=== PATIENT | male | born 1995 | race Hispanic/Latino ===

== ENCOUNTER 2019-01-30 10:17 | Emergency (ER) | payer OTHER, SELFPAY ==
[2019-01-30] MEDS ORDERED: KETOROLAC 30 MG/ML INJ ONE (10:47)
--- NOTE | 2019-01-30 12:32 | EDPHYS ---
Physician Documentation [facility] Name: Grupo Thomas Age: 23 yrs Sex: Male : 1995 Arrival Date: 01/30/2019 Time: 10:20 Bed 12 Private MD: ED Physician Servando Perea HPI: 01/30 10:52 This 23 yrs old Male presents to ER via Ambulatory with complaints of Knee jmm Pain. 10:52 The patient presents with an injury, pain. Onset: The symptoms/episode began/occurred jmm acutely. Modifying factors: The symptoms are alleviated by nothing. the symptoms are aggravated by movement. Associated signs and symptoms: Pertinent positives: swelling. This is a 23 year old male with no chronic medical conditions that presents to the ED with complaints of right knee pain and swelling. Patient states his knee cap displaced after falling directly on the knee while wrestling. . Historical: - Allergies: 10:26 No Known Allergies; sg - Home Meds: 10:26 None [Active]; sg - PMHx: 10:26 None; sg - PSHx: 10:26 None; sg - Immunization history:: Adult Immunizations up to date. - Social history:: Smoking status: Patient/guardian denies using tobacco. - Ebola Screening: : Patient negative for fever greater than or equal to 101.5 degrees Fahrenheit, and additional compatible Ebola Virus Disease symptoms Patient denies exposure to infectious person Patient denies travel to an Ebola-affected area in the 21 days before illness onset No symptoms or risks identified at this time. ROS: 10:52 Constitutional: Negative for fever, chills, and weight loss, Cardiovascular: Negative jmm for chest pain, palpitations, and edema, Respiratory: Negative for shortness of breath, cough, wheezing, and pleuritic chest pain. 10:52 MS/extremity: Positive for injury or acute deformity, pain. 10:52 All other systems are negative. Exam: 10:52 Constitutional: This is a well developed, well nourished patient who is awake, alert, jmm and in no acute distress. Head/Face: atraumatic. Eyes: EOMI, no conjunctival erythema appreciated ENT: Moist Mucus Membranes Neck: Trachea midline, Supple Chest/axilla: Normal chest wall appearance and motion. Cardiovascular: Regular rate and rhythm. No edema appreciated Respiratory: Normal respirations, no respiratory distress appreciated Abdomen/GI: Non distended, soft Back: Normal ROM Skin: General appearance color normal 10:52 Musculoskeletal/extremity: right anterior knee is TTP, compartments are soft, FROM is appreciated, NVI. 10:52 Skin: Appearance: Color: normal in color. 10:52 Neuro: Orientation: is normal, Mentation: is normal, Memory: is normal. 10:52 Psych: Behavior/mood is pleasant, cooperative. Vital Signs: 10:26 BP 141 / 86; Pulse 98; Resp 17; Temp 97.2; Pulse Ox 100% on R/A; Weight 111.13 kg (R); sg Height 6 ft. 0 in. (182.88 cm); Pain 12/02; 10: Body Mass Index 33.23 (111.13 kg, 182.88 cm) sg MDM: 10:36 Patient medically screened. [facility] 12:29 Data reviewed: vital signs, nurses notes, radiologic studies, plain films. Counseling: karely I had a detailed discussion with the patient and/or guardian regarding: the historical points, exam findings, and any diagnostic results supporting the discharge/admit diagnosis, radiology results, the need for outpatient follow up, to return to the emergency department if symptoms worsen or persist or if there are any questions or concerns that arise at home. ED course: Xray appears normal. Patient is advised to follow up with ortho due to possible patellar dislocation and otherwise given strict return precautions. Patient understood and agrees with the plan of care. . 01/30 10:45 Order name: Knee Right 3 View XRAY [facility] 01/30 11:52 Order name: Knee Immobilizer; Complete Time: 12:17 [facility] Administered Medications: 10:48 Drug: Ketorolac 30 mg Route: IM; Site: left deltoid; iw Disposition: 01/31 08:32 Co-signature as Attending Physician, Servando Perea MD I agree with the assessment and kdr plan of care. Disposition: 01/30/19 12:31 Discharged to Home. Impression: Pain in right knee. - Condition is Stable. - Discharge Instructions: Knee Pain. - Prescriptions for Ibuprofen 800 mg Oral Tablet - take 1 tablet by ORAL route every 8 hours As needed take with food; 30 tablet. - Medication Reconciliation Form, Thank You Letter, Antibiotic Education, Prescription Opioid Use, Work release form form. - Follow up: Marciano Dc MD; When: 2 - 3 days; Reason: Recheck today's complaints, Continuance of care, Re-evaluation by your physician. Signatures: Dispatcher [employer] EDMS Marciano Quigley, RN RN Servando Perea MD MD [facility] Carl Rehman PA PA Zeny Douglas RN RN iw Corrections: (The following items were deleted from the chart) 01/30 13:07 12:31 01/30/2019 12:31 Discharged to Home. Impression: Pain in right knee. Condition is iw Stable. Forms are Medication Reconciliation Form, Thank You Letter, Antibiotic Education, Prescription Opioid Use. Follow up: Marciano Dc; When: 2 - 3 days; Reason: Recheck today's complaints, Continuance of care, Re-evaluation by your physician. dima
--- NOTE | 2019-01-30 12:32 | ER ---
Nurse's Notes [facility] Name: Grupo Thomas Age: 23 yrs Sex: Male : 1995 Arrival Date: 01/30/2019 Time: 10:20 Bed 12 Private MD: Diagnosis: Pain in right knee Presentation: 01/30 10:26 Presenting complaint: Patient states: was rough housing with friends last night, hurt sg my knee by twisting it out of socket, was able to get it placed back into socket and put a brace on then just went to sleep, today the pain has worsened, hurts the most with weightbearing and trying to walk. Transition of care: patient was not received from another setting of care. Onset of symptoms was January 30, 2019. Risk Assessment: Do you want to hurt yourself or someone else? Patient reports no desire to harm self or others. Initial Sepsis Screen: Does the patient meet any 2 criteria? No. Patient's initial sepsis screen is negative. Does the patient have a suspected source of infection? No. Patient's initial sepsis screen is negative. Care prior to arrival: None. 10:26 Method Of Arrival: Ambulatory sg 10:26 Acuity: ENRIQUE 4 sg Historical: - Allergies: 10:26 No Known Allergies; sg - Home Meds: 10:26 None [Active]; sg - PMHx: 10:26 None; sg - PSHx: 10:26 None; sg - Immunization history:: Adult Immunizations up to date. - Social history:: Smoking status: Patient/guardian denies using tobacco. - Ebola Screening: : Patient negative for fever greater than or equal to 101.5 degrees Fahrenheit, and additional compatible Ebola Virus Disease symptoms Patient denies exposure to infectious person Patient denies travel to an Ebola-affected area in the 21 days before illness onset No symptoms or risks identified at this time. Assessment: 10:30 General: Appears in no apparent distress. well groomed, well developed, well nourished, sg Behavior is calm, cooperative, appropriate for age. Pain: Complains of pain in right quadriceps and right knee Quality of pain is described as sharp. Neuro: Level of Consciousness is awake, alert, obeys commands, Oriented to person, place, time, situation, Speech is normal, Facial symmetry appears normal. Cardiovascular: Capillary refill is brisk in bilateral fingers Patient's skin is warm and dry. Chest pain is denied. Respiratory: Airway is patent Respiratory effort is even, unlabored, Respiratory pattern is regular, symmetrical. GI: Abdomen is round non-distended. : No signs and/or symptoms were reported regarding the genitourinary system. EENT: No signs and/or symptoms were reported regarding the EENT system. Derm: Skin is pink, warm \T\ dry. Musculoskeletal: Circulation, motion, and sensation intact. Range of motion: intact in all extremities. Vital Signs: 10:26 BP 141 / 86; Pulse 98; Resp 17; Temp 97.2; Pulse Ox 100% on R/A; Weight 111.13 kg (R); sg Height 6 ft. 0 in. (182.88 cm); Pain 10/10; 10:26 Body Mass Index 33.23 (111.13 kg, 182.88 cm) sg ED Course: 10:20 Patient arrived in ED. mr 10:25 Arm band placed on. sg 10:29 Marciano Quigley, RN is Primary Nurse. sg 10:29 Carl Rehman PA is PHCP. m 10:29 Servando Perea MD is Attending Physician. m 10:30 Triage completed. sg 10:31 ice pack applied. sg 11:38 Knee Right 3 View XRAY In Process Unspecified. EDMS 12:30 Marciano Dc MD is Referral Physician. [facility] Administered Medications: 10:48 Drug: Ketorolac 30 mg Route: IM; Site: left deltoid; iw Outcome: 12:31 Discharge ordered by . [facility] 13:07 Patient left the ED. iw Signatures: Dispatcher [employer] EDMS Marciano Quigley, RN RN Carl Rehman PA PA jmm Rivera, Mary mr Williams, Irene, RN RN iw
--- NOTE | 2019-01-30 13:13 | RAD REPORT ---
EXAM DESCRIPTION: RAD - Knee Right 3 View - 01/30/2019 11:37 am COMPARISON: None. FINDINGS: No fracture, dislocation or periosteal reaction.Small joint effusion is present. No joint space narrowing. No foreign body or other soft tissue abnormality. IMPRESSION: Small joint effusion with no acute bone finding. Clinical concerns for internal derangement or occult bony injury could be further assessed with MR im aging.
[2019-01-30 13:21] VITALS: BP 141/86; TEMP 97.2; O2SAT 100
== END 2019-01-30 13:07 | disposition home or self-care (01) ==
LOC: ER 10:17
DX: M25.561 Pain in right knee (principal)
CPT/HCPCS: 96372; 99283

== ENCOUNTER 2023-10-05 20:36 | Inpatient (IN) | payer SELFPAY ==
--- NOTE | 2023-10-05 20:46 | P.HP ---
Certification for Inpatient Patient admitted to: Inpatient With expected LOS: <2 Midnights Practitioner: I am a practitioner with admitting privileges, knowledge of patient current condition, hospital course, and medical plan of care. Services: Services provided to patient in accordance with Admission requirements found in Title 42 Section 412.3 of the Code of Federal Regulations Patient History Date of Service: 10/05/23 Reason for admission: PE, DVT History of Present Illness: 28-year-old male with a past medical history of DVT, presents as a direct admission for PE. He presented to the outside urgent care with chest pain. He reported chest pain started 1 week ago while working out at the gym. He reports associated shortness of breath, that is worse with exertion, he reports chest pain is worse with exertion. Chest pain radiates to the neck described as a 2 out of 10 currently. Chest pain, shortness of breath relieved with rest. No reported nausea, vomiting, diaphoresis. He reports history of a DVT 2019, . He reports right lower extremity swelling. He denies recent injury. Ultrasound positive DVT right lower superficial femoral and popliteal vein thrombosis extremity, CTA of the chest shows small pulmonary embolism in the right posterior basal segment, no have a evidence of right heart strain, mild pulmonary vascular congestion. Plan to admit for PE, right lower extremity DVT, with cardiology to consult. Allergies No Known Allergies Allergy (Verified 10/05/23 21:18) Home Medications: NK [No Home Meds] 10/05/23 - Past Medical/Surgical History -: DVT -: Knee dislocation - Social History Smoking Status: Current some day smoker Alcohol use: Yes Caffeine use: Yes Place of Residence: Home Review of Systems Per HPI Physical Examination - Physical Exam General: Alert, Oriented x3, Mild distress HEENT: Atraumatic, Normocephalic, PERRLA, Mucous membr. moist/pink Neck: 2+ carotid pulse no bruit, JVD not distended Respiratory: Clear to auscultation bilaterally, Normal air movement Cardiovascular: Normal pulses, Regular rate/rhythm, Other (Chest pain radiates to the neck 2 out of 10) Gastrointestinal: Normal bowel sounds, Soft and benign Musculoskeletal: No clubbing, No swelling Integumentary: No rashes, No breakdown Neurological: Normal speech, Normal strength at 5/5 x4 extr, Cranial nerves 3-12 intact Assessment and Plan - Plan Assessment plan Acute hypoxic respiratory failure secondary to PE Acute chest pain secondary to PE Pulmonary embolus right posterior base Acute right lower extremity DVT medical history of DVT Elevated troponin Tobacco use Cardiology consult, telemetry Echo ordered for the a.m. Lovenox 100 mg twice daily subcu O2 2 L keep sats greater than 90% As needed analgesics, metoprolol 25 twice daily, aspirin, lipid panel ordered presents as a direct admission for PE. He presented to the outside urgent care with chest pain. He reported chest pain started 1 week ago while working out at the gym. He reports associated shortness of breath, that is worse with exertion, he reports chest pain is worse with exertion. Chest pain radiates to the neck described as a 2 out of 10 currently. Chest pain, shortness of breath relieved with rest. No reported nausea, vomiting, diaphoresis. He reports history of a DVT 2019, . He reports right lower extremity swelling. He denies recent injury. Ultrasound positive DVT right lower superficial femoral and popliteal vein thrombosis extremity, CTA of the chest shows small pulmonary embolism in the right posterior basal segment, no have a evidence of right heart strain, mild pulmonary vascular congestion. Full code DVT therapeutic Lovenox Diet cardiac Disposition Home independent prior. Discharge Plan: Home - Advance Directives Does patient have a Living Will: No Does patient have a Durable POA for Healthcare: No - Code Status/Comfort Care Code Status: Full Code Critical Care: No Time Spent Managing Pts Care (In Minutes): 55
[2023-10-05] MEDS ORDERED: ZOLPIDEM TARTRATE 5 MG TABLET PO PRN (20:47)
[2023-10-05] MEDS ORDERED: ACETAMINOPHEN 500 MG TAB PO PRN (20:47)
[2023-10-05] MEDS ORDERED: ONDANSETRON 4 MG/2 ML VIAL IV PRN (20:47)
[2023-10-05] MEDS ORDERED: MORPHINE 4 MG/ML SYR IV PRN (22:54)
[2023-10-06] MEDS: ENOXAPARIN 100 MG/ML SYR SQ SCH (06:00)
[2023-10-06] MEDS: ENOXAPARIN 100 MG/ML SYR SQ ONE (06:04)
[2023-10-06] MEDS: METOPROLOL TAR 25 MG TAB PO SCH (06:04)
[2023-10-06 06:28] LABS: Absolute Basophils 0.1 K/uL (0-0.5); Absolute Eosinophils 0.3 K/uL (0-0.5); Absolute Lymphocytes (CBC) 2.4 K/uL (0.7-4.9); Absolute Monocytes 0.8 K/uL (0.1-1.3); Eosinophils % 3.4 % (0-4.4); Hematocrit 42.8 % (39.6-49.0); Hemoglobin 14.4 g/dL (13.6-17.9); Lymphocytes % 25.3 % (15.3-44.8); MCH 28.8 pg (27.0-35.0); MCHC 33.7 g/dL (32.0-36.0); MCV 85.5 fL (80-100); MPV 10.2 fL (7.6-11.3); Monocytes % 8.6 % (3.3-12.3); Neutrophils % 61.7 % (41.7-73.7); Nucleated Red Blood Cells % 0.1 % (0-0); Platelets 173 thou/uL (152-406); Red Cell Distribution Width 13.1 % (12.1-15.2)
[2023-10-06 06:35] LABS: Albumin 3.5 g/dL (3.4-5.0); Albumin/Globulin Ratio 0.9 (1.1-1.8); Anion Gap 8.8 mEq/L (5.0-15.0); Bilirubin Total 0.5 mg/dL (0.2-1.0); Globulin 3.9 g/dL (2.3-3.5); Magnesium 2.3 mg/dL (1.6-2.4); Potassium 3.8 mEq/L (3.5-5.1); Protein, Total 7.4 g/dL (6.4-8.2)
[2023-10-06] MEDS: ASPIRIN EC 81 MG TAB PO SCH (08:22)
[2023-10-06] MEDS ORDERED: LIDOCAINE 1% 20 ML MDV ONE (11:20)
[2023-10-06] MEDS ORDERED: HEPA 1000U/500MLS 2,000 UNIT/1,000 ML BAG IV ONE (11:20)
[2023-10-06] MEDS ORDERED: FENTANYL CITR 100 MCG/2 ML ONE (11:20)
[2023-10-06] MEDS ORDERED: ATROPINE SULF 1 MG/10 ML SYR IV ONE (11:20)
[2023-10-06] MEDS ORDERED: MIDAZOLAM HCL 2 MG/2 ML INJ ONE (11:20)
[2023-10-06] MEDS ORDERED: CLOPIDOGREL 75 MG TABLET ONE (11:21)
[2023-10-06] MEDS ORDERED: ASPIRIN 325 MG TAB ONE (11:21)
[2023-10-06] MEDS ORDERED: TICAGRELOR 90 MG TABLET PO ONE (11:21)
[2023-10-06] MEDS ORDERED: HEPARIN 10,000 UNIT/10 ML VIAL IV ONE (11:21)
[2023-10-06] MEDS ORDERED: HEPARIN 5000 UNIT/ML 1 ML VIAL ONE (11:21)
[2023-10-06] MEDS ORDERED: NA CHLORIDE 0.9% 500 ML ONE (11:49)
--- NOTE | 2023-10-06 12:13 | P.CNS ---
Date of Consult: 10/06/23 Chief Complaint: PE, DVT History of Present Illness: patient with no significant PMH presented with chest pressure that started thursday, pressure like mid chest, no radiation, associated with SOB and fatigue. Allergies No Known Allergies Allergy (Verified 10/05/23 21:18) Home Medications: NK [No Home Meds] 10/05/23 - Past Medical/Surgical History Diabetic: No -: DVT -: Knee dislocation - Social History Alcohol use: Yes CD- Drugs: No Caffeine use: Yes Place of Residence: Home Review of Systems 10-point ROS is otherwise unremarkable Physical Examination Temp Pulse Resp BP Pulse Ox 97.3 F 68 16 144/85 H 96 10/06/23 08:00 10/06/23 08:00 10/06/23 08:00 10/06/23 08:00 10/06/23 08:00 General: Alert, In no apparent distress HEENT: Atraumatic, PERRLA, Mucous membr. moist/pink, EOMI, Sclerae nonicteric Neck: Supple, 2+ carotid pulse no bruit, No LAD, Without JVD or thyroid abnormality Respiratory: Clear to auscultation bilaterally, Normal air movement Cardiovascular: Regular rate/rhythm, Normal S1 S2 Gastrointestinal: Normal bowel sounds, No tenderness Musculoskeletal: No tenderness Integumentary: No rashes Neurological: Normal gait, Normal speech, Normal tone, Normal affect Lymphatics: No axilla or inguinal lymphadenopathy Laboratory Data (last 24 hrs) 10/06/23 10/06/23 10/06/23 05:39 05:39 05:39 WBC 9.70 Hgb 14.4 Hct 42.8 Plt Count 173 Sodium 139 Potassium 3.8 BUN 8 Creatinine 0.92 Glucose 92 Phosphorus 3.5 Magnesium 2.3 Total Bilirubin 0.5 AST 64 H ALT 52 Alkaline Phosphatase 57 Triglycerides 181 H Cholesterol 192 HDL Cholesterol 30 L Cholesterol/HDL Ratio 6.40 - Problems (1) NSTEMI (non-ST elevated myocardial infarction) Current Visit: Yes Status: Acute Plan: will do coronary angiogram get echo ASA 81 mg daily Lipitor 40 mg daily Heparin drip (2) Pulmonary emboli Current Visit: Yes Status: Acute Plan: get echo Heparin drip (3) DVT (deep venous thrombosis) Current Visit: Yes Status: Acute Plan: Heparin drip might switch to eliguis 5 mg po BID on discharge patient will need to follow up with hematology
[2023-10-06] MEDS ORDERED: EPTIFIBATIDE 20 MG/10 ML VIAL IV ONE (12:48)
[2023-10-06] MEDS ORDERED: EPTIFIBATIDE 75 MG/100 ML VIAL IV ONE (12:49)
[2023-10-06 14:31] LABS: RPR Titer ND
--- NOTE | 2023-10-06 15:12 | P.PN ---
Subjective Date of Service: 10/06/23 Chief Complaint: PE, DVT Patient denies any chest pain at the moment. Troponin markedly elevated and trended up to 8768 Patient has no new complaints. He denies shortness of breath. Physical Examination - Vital Signs Temperature: 97.5 F Blood Pressure: 137/81 Pulse: 79 Respirations: 15 Pulse Ox (%): 100 - Studies Laboratory Data (last 24 hrs) 10/06/23 10/06/23 10/06/23 05:39 05:39 05:39 WBC 9.70 Hgb 14.4 Hct 42.8 Plt Count 173 Sodium 139 Potassium 3.8 BUN 8 Creatinine 0.92 Glucose 92 Phosphorus 3.5 Magnesium 2.3 Total Bilirubin 0.5 AST 64 H ALT 52 Alkaline Phosphatase 57 Triglycerides 181 H Cholesterol 192 HDL Cholesterol 30 L Cholesterol/HDL Ratio 6.40 Assessment And Plan - Plan Physical Examination General: Well-built, Not in acute distress. Neck: Supple, no elevated JVD, no thyromegaly. Lungs: Clear to auscultation bilaterally. No rhonchi, no rales, no crackles. Heart: S1-S2 heard, rapid, no murmur no gallop no rub. Normal capillary refill. Abdomen: Soft, nontender, nondistended, no hepatosplenomegaly. Extremities: No pedal edema. No deformity. Neuro: No cranial nerve deficit, no focal motor deficit. Psychiatry: Awake, normal behavior, normal affect. Skin: Warm and dry, no rashes. Acute chest pain secondary to PE Acute pulmonary embolus. Acute right lower extremity DVT History of DVT NSTEMI Tobacco use Assessment and plan Acute chest pain NSTEMI. Troponin trended significantly up. Cardiology consulted. Patient underwent cardiac catheterization. Coronary artery occlusion secondary to thrombosis reported(preliminary result) Patient started on Integrilin drip and transferred to the ICU. Cardiology to follow-up. Acute pulm embolism Acute DVT of lower extremity Patient with a history of DVTs in the past, history of CVA suggesting thrombotic disorder involving both his arteries and veins Check hypercoagulable studies. Patient need hematology follow-up. I reached out to Dr. Boewn to discuss patient's condition. I am yet to receive a call back. Heparin drip. Tobacco use disorder Patient strongly advised to avoid smoking. DVT prophylaxis: Heparin drip Advance Directive; Full code
[2023-10-06] MEDS: EPTIFIBATIDE 75 MG/100 ML VIAL IV SCH (17:51)
[2023-10-06 17:56] LABS: Specific Gravity > 1.030 (1.005-1.030); Sqamous Epithelial None Seen /HPF (None Seen); Urine Bacteria <20 /HPF (<20); Urine Bilirubin NEGATIVE (Negative); Urine Blood Negative (Negative); Urine Clarity Clear (Clear); Urine Color Colorless (Yellow); Urine Culture Reflex Order NOT NEEDED; Urine Glucose NEGATIVE (Negative); Urine Ketones TRACE (Negative); Urine Microscopic Reflex YN ORDER UMIC; Urine Nitrite NEGATIVE (Negative); Urine Protein NEGATIVE (Negative); Urine RBC <5 /HPF (None Seen); Urine Urobilinogen Normal (Normal); Urine WBC <5 /HPF (<5); Urine pH 6.5 (5.0-7.0)
[2023-10-06] MEDS: HEPARIN/D5W 25,000 UNIT/500 ML BAG IV SCH (20:20)
--- NOTE | 2023-10-06 20:36 | OP ---
Date of Procedure: 10/06/2023 Surgeon: Jean Davalos Procedures Performed: 1.Left heart catheterization. 2.Selective coronary angiogram. 3.PCI of the RCA with Synergy 4.0 x 38 mm drug-eluting stent. Indication For Procedure: [id number] W[place]. Complications: None. Estimated Blood Loss: Less than 50 cc. Sedation Time: 40 minutes with 1 of Versed and 50 of fentanyl. Access: Right radial, closed by TR band. Description Of Procedure: After risks, and benefits, and alternatives were explained to the patient, the patient agreed to proceed with the procedure and signed informed consent. The patient was broug ht back to the lab aid, prepped and draped in sterile fashion. Time-out was performed. Sedation wa s administered. Next, an ultrasound-guided right radial access was obtained. Neffs 4 catheter was advanced over a J-wire to the LV cavity. LVEDP was obtained. Pullback did not show any gradients. Same catheter was used for selective angiogram of t he left and right coronary systems. That catheter was later exchanged for a JR4 guide. Heparin was administered. Then, ACT was therapeutic. Next, a Runthrough wire was passed across the RCA. I pre- dilated the mid RCA disease with an NC 3.5 mm balloon. Next, Synergy 4.0 x 38 mm drug-eluting stent was placed across the lesion. That was post-dilated with an NC 5 mm balloon at 18 atmospheres. Adeline l angiogram shows EDWIN-3 flow. Catheter was removed over a J-wire. Sheath was removed. TR band was applied. The patient was moved back to recovery in stable condition. Findings: 1.Left main normal. 2.LAD normal. 3.Left circ normal. 4.RCA; large, dominant, mid 80% plaque erosions with thrombotic lesion is seen over there, PCI done with Synergy 4.0 x 38 mm drug-eluting stent, distal mild LI. Assessment And Plan: Significant mid RCA thrombotic disease. PCI done with Synergy 4.0 x 38 mm drug -eluting stent. 1.Aspirin 81 mg daily for life. 2.Brilinta 180 x1 was given in the lab aid, continue Brilinta 90 mg p.o. b.i.d. for 12 months. 3.Integrilin bolus was given in the lab aid, continue drip for 6 hours. 4.Heparin drip to be resumed in 2 hours and to be continued for 48 hours after PCI. 5.Continue aggressive medical treatment for CAD. GROVE/MODL Voice ID: [id number] Report ID: [id number]
[2023-10-06] MEDS: TICAGRELOR 90 MG TABLET PO SCH (23:11)
[2023-10-07 01:07] LABS: RPR (Rapid Plasma Reagin) NON-REACT (NON-REACT)
[2023-10-07 02:59] VITALS: BMI 31.8
[2023-10-07 06:16] LABS: Absolute Basophils 0.1 K/uL (0-0.5); Absolute Eosinophils 0.3 K/uL (0-0.5); Absolute Lymphocytes (CBC) 2.3 K/uL (0.7-4.9); Absolute Neutrophil 7.1 K/uL (1.8-8.0); Basophils % 0.8 % (0-1.3); Eosinophils % 2.9 % (0-4.4); Hematocrit 42.1 % (39.6-49.0); Hemoglobin 14.1 g/dL (13.6-17.9); Lymphocytes % 21.5 % (15.3-44.8); MCH 28.8 pg (27.0-35.0); MCHC 33.6 g/dL (32.0-36.0); MCV 85.6 fL (80-100); MPV 10.6 fL (7.6-11.3); Neutrophils % 65.8 % (41.7-73.7); Platelets 187 thou/uL (152-406); RBC Red Blood Cell Count 4.92 M/uL (4.33-5.43); Red Cell Distribution Width 13.2 % (12.1-15.2)
[2023-10-07 06:40] LABS: Albumin 3.5 g/dL (3.4-5.0); Albumin/Globulin Ratio 0.8 (1.1-1.8); Anion Gap 11.6 mEq/L (5.0-15.0); Bilirubin Total 0.9 mg/dL (0.2-1.0); Globulin 4.3 g/dL (2.3-3.5); Magnesium 2.1 mg/dL (1.6-2.4); Potassium 3.6 mEq/L (3.5-5.1); Protein, Total 7.8 g/dL (6.4-8.2)
--- NOTE | 2023-10-07 06:47 | P.PN ---
Date of Service: 10/07/23 Subjective: doing well post-op. Had LHC and PCI done yesterday feels some mild chest pressure this morning; feels less severe reports history of blood clots in past and has been on blood thinners previously (when 17years old) no new/worse issues overnight ROS: 10 point ROS as noted above, otherwise negative Physical Exam: GEN: Alert, oriented, NAD CV: Regular rate and rhythm, no edema Pulm: Nonlabored respirations on room air, clear bilaterally ABD: Soft, nontender, nondistended Neuro: Normal speech, normal affect vitals reviewed Problem List: NSTEMI secondary to RCA occlusion / thrombus; now s/p PCI (10/05) acute PE and DVT (Right lower superficial femoral and popliteal vein) hx DVT/PE Tobacco use NSTEMI secondary to RCA occlusion / thrombus; now s/p PCI (10/05) Presented from outside urgent care with chest pain/pressure for ~1 week associated with shortness of breath worsened with exertion. Troponin trended up, 11.4k peak Cardiology is following s/p LHC (10/05): noted 80% RCA occlusion with thrombotic lesion, s/p PCI Coronary artery occlusion secondary to thrombosis transferred to ICU post-op for close monitoring; s/p Integrilin drip (10/05) continue heparin drip for 48 hours (10/05-10/07) continue ASA, metoprolol continue brilinta 90 mg BID; will need to continue for 1 year acute PE and DVT (Right lower superficial femoral and popliteal vein) hx DVT/PE Per outside urgent care imaging: lower extremity u/s: positive for DVT right lower superficial femoral and popliteal vein CTA chest: small PE in right posterior basal segment; no evidence of right heart strain. Mild pulmonary vascular congestion. hypercoagulable studies sent out; pending results Will need to follow up with hematology. Dr. Henderson attempted to contact Dr. Jose has but has been unable to get ahold of him. on heparin drip. Likely transition to eliquis/xarelto on discharge Tobacco use cessation advised VTE: heparin drip Code: Full Dispo: Home, ~1-2 days Pending cardiac recs Time Spent Managing Pts Care (In Minutes): 40
[2023-10-07] MEDS: POTASSIUM CL SA 10 MEQ TAB PO ONE (08:03)
[2023-10-07] MEDS: CLOPIDOGREL 75 MG TABLET PO SCH (12:26)
--- NOTE | 2023-10-07 16:16 | P.PN ---
Subjective Date of Service: 10/07/23 Chief Complaint: PE, DVT Subjective: No new changes, No C/O voiced, Tolerating diet, Ambulating, Improving Review of Systems 10-point ROS is otherwise unremarkable Physical Examination - Vital Signs Temperature: 98.1 F Blood Pressure: 140/76 Pulse: 84 Respirations: 20 Pulse Ox (%): 95 - Physical Exam General: Alert, In no apparent distress HEENT: Atraumatic, PERRLA, EOMI Neck: Supple, JVD not distended Respiratory: Clear to auscultation bilaterally, Normal air movement Cardiovascular: Regular rate/rhythm, Normal S1 S2 Gastrointestinal: Normal bowel sounds, No tenderness Musculoskeletal: No tenderness Integumentary: No rashes Neurological: Normal speech, Normal tone, Normal affect Lymphatics: No axilla or inguinal lymphadenopathy - Studies Laboratory Data (last 24 hrs) 10/07/23 10/07/23 10/07/23 10:09 05:39 05:39 WBC Hgb Hct Plt Count APTT 58.8 H 52.4 H Sodium 138 Potassium 3.6 BUN 8 Creatinine 0.88 Glucose 88 Magnesium 2.1 Total Bilirubin 0.9 AST 71 H ALT 55 Alkaline Phosphatase 56 10/07/23 10/07/23 10/06/23 05:39 02:45 18:42 WBC 10.70 Hgb 14.1 Hct 42.1 Plt Count 187 APTT 38.6 H 40.2 H Sodium Potassium BUN Creatinine Glucose Magnesium Total Bilirubin AST ALT Alkaline Phosphatase Medications List Reviewed: Yes Assessment And Plan - Current Problems (Diagnosis) (1) NSTEMI (non-ST elevated myocardial infarction) Current Visit: Yes Status: Acute Plan: coronary angiogram shows thrombotic disease mid RCA s/p PCI with Synergy KIMI. get echo ASA 81 mg daily switch Brilinta to Plavix to 75 mg daily Lipitor 40 mg daily Heparin drip for 24 hours. (2) Pulmonary emboli Current Visit: Yes Status: Acute Plan: Eliquis 5 mg po BID (3) DVT (deep venous thrombosis) Current Visit: Yes Status: Acute Plan: Heparin drip switch to eliguis 5 mg po BID on discharge patient will need to follow up with hematology
[2023-10-07] MEDS: TICAGRELOR 90 MG TABLET PO SCH (16:35)
[2023-10-07] MEDS: ATORVASTATIN 40 MG TAB PO SCH (22:32)
[2023-10-08 06:04] LABS: Absolute Basophils 0.1 K/uL (0-0.5); Absolute Eosinophils 0.4 K/uL (0-0.5); Absolute Lymphocytes (CBC) 2.5 K/uL (0.7-4.9); Absolute Neutrophil 6.3 K/uL (1.8-8.0); Basophils % 0.9 % (0-1.3); Hematocrit 43.7 % (39.6-49.0); Hemoglobin 14.6 g/dL (13.6-17.9); Lymphocytes % 24.3 % (15.3-44.8); MCH 28.6 pg (27.0-35.0); MCHC 33.5 g/dL (32.0-36.0); MCV 85.4 fL (80-100); MPV 10.8 fL (7.6-11.3); Monocytes % 9.6 % (3.3-12.3); Neutrophils % 61.2 % (41.7-73.7); Platelets 206 thou/uL (152-406); RBC Red Blood Cell Count 5.12 M/uL (4.33-5.43); Red Cell Distribution Width 13.1 % (12.1-15.2)
[2023-10-08 06:23] LABS: Anion Gap 7.7 mEq/L (5.0-15.0); Phosphorus 3.6 mg/dL (2.5-4.9); Potassium 3.7 mEq/L (3.5-5.1)
--- NOTE | 2023-10-08 06:52 | ECHO ---
HEIGHT: 6 ft 1 in WEIGHT: 241 lb 0 oz DATE OF STUDY: 10/07/[address]: Jean Davalos MD 2-DIMENSIONAL: YES M.MODE: YES DOPPLER: YES COLOR FLOW: YES TDS: PORTABLE: YES DEFINITY: BUBBLE STUDY: DIAGNOSIS: PULMONARY EMBOLISM CARDIAC HISTORY: CATHERIZATION: YES SURGERY: NO PROSTHETIC VALVE: NO PACEMAKER: NO MEASUREMENTS (cm) DIASTOLIC (NORMALS) SYSTOLIC (NORMALS) IVSd 1.0 (0.6-1.2) LA Diam 2.6 (1.9-4.0) LVEF 55-60% LVIDd 4.3 (3.5-5.7) LVIDs 3.2 (2.0-3.5) %FS 27% LVPWd 1.1 (0.6-1.2) Ao Diam 3.1 (2.0-3.7) 2 DIMENSIONAL ASSESSMENT: RIGHT ATRIUM: NORMAL LEFT ATRIUM: NORMAL RIGHT VENTRICLE: NORMAL LEFT VENTRICLE: NORMAL TRICUSPID VALVE: TRACE TRICUSPID REGURGITATION MITRAL VALVE: TRACE MITRAL REGURGITATION PULMONIC VALVE: NORMAL AORTIC VALVE: NORMAL PERICARDIAL EFFUSION: NONE AORTIC ROOT: NORMAL LEFT VENTRICULAR WALL MOTION: NORMAL DOPPLER/COLOR FLOW: SEE BELOW COMMENTS: 1. NORMAL LEFT VENTRICULAR EJECTION FRACTION 55-60% WITH NORMAL WALL MOTION 2. TRACE TRICUSPID REGURGITATION/ MITRAL REGURGITATION TECHNOLOGIST: ALEC GONZALEZ
--- NOTE | 2023-10-08 09:30 | P.PN ---
Subjective Date of Service: 10/08/23 Chief Complaint: PE, DVT Subjective: No new changes, No C/O voiced, Tolerating diet, Ambulating, Improving Review of Systems 10-point ROS is otherwise unremarkable Physical Examination - Vital Signs Temperature: 97.8 F Blood Pressure: 132/75 Pulse: 72 Respirations: 16 Pulse Ox (%): 99 - Physical Exam General: Alert, In no apparent distress HEENT: Atraumatic, PERRLA, EOMI Neck: Supple, JVD not distended Respiratory: Clear to auscultation bilaterally, Normal air movement Cardiovascular: Regular rate/rhythm, Normal S1 S2 Gastrointestinal: Normal bowel sounds, No tenderness Musculoskeletal: No tenderness Integumentary: No rashes Neurological: Normal speech, Normal tone, Normal affect Lymphatics: No axilla or inguinal lymphadenopathy - Studies Laboratory Data (last 24 hrs) 10/08/23 10/08/23 10/08/23 05:22 05:22 05:22 WBC 10.30 Hgb 14.6 Hct 43.7 Plt Count 206 APTT 63.8 H Sodium 137 Potassium 3.7 BUN 13 Creatinine 0.97 Glucose 91 Phosphorus 3.6 Magnesium 2.0 10/07/23 10/07/23 10/07/23 19:11 15:02 10:09 WBC Hgb Hct Plt Count APTT 57.2 H 53.9 H 58.8 H Sodium Potassium BUN Creatinine Glucose Phosphorus Magnesium Medications List Reviewed: Yes Assessment And Plan - Current Problems (Diagnosis) (1) NSTEMI (non-ST elevated myocardial infarction) Current Visit: Yes Status: Acute Plan: coronary angiogram shows thrombotic disease mid RCA s/p PCI with Synergy KIMI. echo shows normal EF. ASA 81 mg daily switch Brilinta to Plavix to 75 mg daily Lipitor 40 mg daily ok to discharge home today (2) Pulmonary emboli Current Visit: Yes Status: Acute Plan: Eliquis 5 mg po BID (3) DVT (deep venous thrombosis) Current Visit: Yes Status: Acute Plan: Heparin drip switch to eliguis 5 mg po BID on discharge patient will need to follow up with hematology
[2023-10-08 09:45] VITALS: O2SAT 99
--- NOTE | 2023-10-08 11:11 | P.DS ---
Admission Date: 10/07/23 Discharge Date: 10/08/23 Disposition: ROUTINE DISCHARGE Discharge Condition: GOOD Reason for Admission: PE, DVT Consultations: Cardiology - Dr. Davalos / Dr. Oliver Brief History of Present Illness: 28yo M, PMH: DVT Patient presents as a direct admission for PE. He presented to the outside urgent care with chest pain. He reported chest pain started 1 week ago while working out at the gym. He reports associated shortness of breath, that is worse with exertion, he reports chest pain is worse with exertion. Chest pain radiates to the neck described as a 2 out of 10 currently. Chest pain, shortness of breath relieved with rest. No reported nausea, vomiting, diaphoresis. He reports history of a DVT 2019, . He reports right lower extremity swelling. He denies recent injury. Ultrasound positive DVT right lower superficial femoral and popliteal vein thrombosis extremity, CTA of the chest shows small pulmonary embolism in the right posterior basal segment, no have a evidence of right heart strain, mild pulmonary vascular congestion. Plan to admit for PE, right lower extremity DVT, with cardiology to consult. Hospital Course: Problem List: NSTEMI secondary to RCA occlusion / thrombus; now s/p PCI (10/05) acute PE and DVT (Right lower superficial femoral and popliteal vein) hx DVT/PE Tobacco use Physician discharge instructions: Patient was seen at outside urgent care and presents as direct admission for acute PE and DVT (outside imaging reports below). He reports worsening chest pain, shortness of breath for ~1 week. His troponin's trended up to 11k. Patient was evaluated by Dr. Davalos, tire sorter, and underwent left heart cath which noted 80% RCA occlusion with thrombotic lesion and had 1 stent placed on 10/05. Cardiology felt coronary artery occlusion to be secondary to thrombosis. He was transferred to ICU for close monitoring post operatively and started on an intelgrilin drip (10/05) and transitionted to heparin drip for ~48 hours post op. Echocardiogram done 10/06 noted 55-60% Ejection fraction with trace tricuspid and mitral regurgitation. Patient was feeling better, chest pain resolved, breathing more comfortably on room air, and was deemed stable for discharge. Advised to follow up with cardiology in ~2 weeks for further management. Hypercoagulable studies were sent out this hospitalization to further evaluate - result pending upon discharge. Advised patient to follow up with a post tronic machine operator in near future to discuss lab results and to further evaluate. This is 2nd time he has had a blood clot / DVT. No provoking factors identified at this time. Discussed with patient he will need to be on anticoagulation indefinitely. Medications: Plavix 75 mg daily for at least 12 months Eliquis 5 mg twice daily Lipitor 40 mg daily baby aspirin 81 mg daily (over the counter) avoid NSAIDs like advil, aleve, ibuprofen - will increase bleeding risk okay to take tylenol Follow up: PCP 3-5 days Cardiology ~2 weeks Hematology 2-4 weeks Please call to schedule / confirm appointments. Outside urgent care Imaging: Lower extremity ultrasound: positive for DVT right lower superficial femoral and popliteal vein CTA chest: small PE in right posterior basal segment; no evidence of right heart strain. Mild pulmonary vascular congestion. Physical Exam: GEN: Alert, oriented, NAD CV: Regular rate and rhythm, no edema Pulm: Nonlabored respirations on room air, clear bilaterally ABD: Soft, nontender, nondistended Neuro: Normal speech, normal affect Vital Signs/Physical Exam: Temp Pulse Resp BP Pulse Ox 97.8 F 72 16 132/75 99 10/08/23 09:30 10/08/23 09:30 10/08/23 09:30 10/08/23 09:30 10/08/23 09:30 Laboratory Data at Discharge: WBC 10.30 thou/uL (4.3-10.9) 10/08/23 05:22 Hgb 14.6 g/dL (13.6-17.9) 10/08/23 05:22 Hct 43.7 % (39.6-49.0) 10/08/23 05:22 Plt Count 206 thou/uL (152-406) 10/08/23 05:22 APTT 63.8 SECONDS (24.3-36.9) H 10/08/23 05:22 Sodium 137 mEq/L (136-145) 10/08/23 05:22 Potassium 3.7 mEq/L (3.5-5.1) 10/08/23 05:22 BUN 13 mg/dL (7-18) 10/08/23 05:22 Creatinine 0.97 mg/dL (0.70-1.30) 10/08/23 05:22 Glucose 91 mg/dL (74-106) 10/08/23 05:22 Phosphorus 3.6 mg/dL (2.5-4.9) 10/08/23 05:22 Magnesium 2.0 mg/dL (1.6-2.4) 10/08/23 05:22 Total Bilirubin 0.9 mg/dL (0.2-1.0) 10/07/23 05:39 AST 71 U/L (15-37) H 10/07/23 05:39 ALT 55 U/L (16-61) 10/07/23 05:39 Alkaline Phosphatase 56 U/L (45-117) 10/07/23 05:39 Triglycerides 181 mg/dL (<150) H 10/06/23 05:39 Cholesterol 192 mg/dL (<200) 10/06/23 05:39 HDL Cholesterol 30 mg/dL (40-60) L 10/06/23 05:39 Cholesterol/HDL Ratio 6.40 10/06/23 05:39 Home Medications: Apixaban [Eliquis] 5 mg PO BID 30 Days #60 tab 10/08/23 Aspirin [Aspirin EC 81 MG] 81 mg PO DAILY 30 Days #30 tab 10/08/23 Atorvastatin Calcium [Lipitor] 40 mg PO BEDTIME 30 Days #30 tab 10/08/23 Clopidogrel Bisulfate [Plavix*] 75 mg PO DAILY 30 Days #30 tab 10/08/23 New Medications: Aspirin [Aspirin EC 81 MG] 81 mg PO DAILY 30 Days #30 tab Apixaban [Eliquis] 5 mg PO BID 30 Days #60 tab Atorvastatin Calcium [Lipitor] 40 mg PO BEDTIME 30 Days #30 tab Clopidogrel Bisulfate [Plavix*] 75 mg PO DAILY 30 Days #30 tab Physician Discharge Instructions: Physician discharge instructions: Patient was seen at outside urgent care and presents as direct admission for acute PE and DVT (outside imaging reports below). He reports worsening chest pain, shortness of breath for ~1 week. His troponin's trended up to 11k. Patient was evaluated by Dr. Davalos, tire sorter, and underwent left heart cath which noted 80% RCA occlusion with thrombotic lesion and had 1 stent placed on 10/05. Cardiology felt coronary artery occlusion to be secondary to thrombosis. He was transferred to ICU for close monitoring post operatively and started on an intelgrilin drip (10/05) and transitionted to heparin drip for ~48 hours post op. Echocardiogram done 10/06 noted 55-60% Ejection fraction with trace tricuspid and mitral regurgitation. Patient was feeling better, chest pain resolved, breathing more comfortably on room air, and was deemed stable for discharge. Advised to follow up with cardiology in ~2 weeks for further management. Hypercoagulable studies were sent out this hospitalization to further evaluate - result pending upon discharge. Advised patient to follow up with a post tronic machine operator in near future to discuss lab results and to further evaluate. This is 2nd time he has had a blood clot / DVT. No provoking factors identified at this time. Discussed with patient he will need to be on anticoagulation indefinitely. Medications: Plavix 75 mg daily for at least 12 months Eliquis 5 mg twice daily Lipitor 40 mg daily baby aspirin 81 mg daily (over the counter) avoid NSAIDs like advil, aleve, ibuprofen - will increase bleeding risk okay to take tylenol Follow up: PCP 3-5 days Cardiology ~2 weeks Hematology 2-4 weeks Please call to schedule / confirm appointments. Outside urgent care Imaging: Lower extremity ultrasound: positive for DVT right lower superficial femoral and popliteal vein CTA chest: small PE in right posterior basal segment; no evidence of right heart strain. Mild pulmonary vascular congestion. Time spent managing pt's care (in minutes): 45
[2023-10-08] MEDS: POTASSIUM 25 MEQ EFFERV TAB PO ONE (11:25)
[2023-10-08] MEDS: CLOPIDOGREL 75 MG TABLET PO SCH (11:25)
[2023-10-08 15:00] LABS: Abnormal Protein Band 1 REPORT; Albumin, (SPE) 3.6 g/dL (3.8-4.8); Alpha-1-Globulins 0.2 g/dL (0.2-0.3); Alpha-2-Globulins 0.7 g/dL (0.5-0.9); Beta 1 Globulin 0.4 g/dL (0.4-0.6); Gamma Globulins 1.1 g/dL (0.8-1.7); INTERPRETATION REPORT; Total Protein 6.9 g/dL (6.1-8.1)
[2023-10-08 17:23] VITALS: BP 131/79; TEMP 97.8
[2023-10-08] MEDS ORDERED: APIXABAN 5 MG TABLET PO ONE (18:00)
[2023-10-08] MEDS: APIXABAN 5 MG TABLET PO ONE (18:29)
[2023-10-08 20:54] LABS: Homocysteine 6.9 umol/L (<11.4)
[2023-10-10 05:11] LABS: Phosphatidylser & Prothrom IgG 12 U (<=30); Phosphatidylser & Prothrom IgM 12 U (<=30)
== END 2023-10-08 19:51 | disposition home or self-care (01) | DRG 981 ==
LOC: 2ND 20:36 → 3RD-ICU 10-06 14:52 → OBSVTOIN 10-07 09:59 → 4TH 10-08 05:45
PROVIDERS: ADMIT Internal Medicine; ATTEND Hospitalist
PROC: 027034Z Dilation of Coronary Artery, One Artery with Drug-eluting Intraluminal Device, Percutaneous Approach (ICD-10-PCS; principal; 2023-10-06)
PROC: 4A023N7 Measurement of Cardiac Sampling and Pressure, Left Heart, Percutaneous Approach (ICD-10-PCS; 2023-10-06)
PROC: B2111ZZ Fluoroscopy of Multiple Coronary Arteries using Low Osmolar Contrast (ICD-10-PCS; 2023-10-06)
DX: I26.99 Other pulmonary embolism without acute cor pulmonale (principal); I21.4 Non-ST elevation (NSTEMI) myocardial infarction; J96.01 Acute respiratory failure with hypoxia; I82.411 Acute embolism and thrombosis of right femoral vein; I82.431 Acute embolism and thrombosis of right popliteal vein; I65.21 Occlusion and stenosis of right carotid artery; F17.200 Nicotine dependence, unspecified, uncomplicated; R79.89 Other specified abnormal findings of blood chemistry; Z79.82 Long term (current) use of aspirin; Z79.01 Long term (current) use of anticoagulants; Z79.02 Long term (current) use of antithrombotics/antiplatelets; Z79.899 Other long term (current) drug therapy; Z86.718 Personal history of other venous thrombosis and embolism
CPT/HCPCS: 36415; 76937; 80048; 80053; 80061; 81001; 81240; 81241; 82306; 83090; 83516; 83735; 83880; 84100; 84165; 84484; 85025; 85300; 85302; 85305; 85306; 85347; 85730; 86021; 86146; 86147; 86592; 92928; 93306; 93458; 94760; 99152; C1725; C1893; G0378; G0379; J0461; J1327; J1644; J1650; J2001; J2250; J3010; J7040; Q9967